=== PATIENT | female | born 1930 | race Caucasian/White ===

== ENCOUNTER → 2017-03-14 14:22 | Outpatient (CLI) | payer MEDICARE ==
[2017-03-14 19:26] LABS: INR 2.44 (0.85-1.17); PROTIME 25.8 SECONDS (11.6-15.0)
== END | disposition home or self-care (01) ==
LOC: D.LABREF 14:22
PROVIDERS: Family Medicine
DX: I63.9 Cerebral infarction, unspecified (principal)

== ENCOUNTER → 2017-04-11 12:21 | Outpatient (CLI) | payer MEDICARE | END | disposition home or self-care (01) | LOC: D.LABREF 12:21 | DX: Z95.2 Presence of prosthetic heart valve (principal); Z51.81 Encounter for therapeutic drug level monitoring; Z79.01 Long term (current) use of anticoagulants ==

== ENCOUNTER → 2017-05-09 12:49 | Outpatient (CLI) | payer MEDICARE ==
[2017-05-09 14:31] LABS: INR 2.76 (0.85-1.17); PROTIME 28.4 SECONDS (11.6-15.0)
== END | disposition home or self-care (01) ==
LOC: D.LABREF 12:49
PROVIDERS: Family Medicine
DX: I63.9 Cerebral infarction, unspecified (principal); Z51.81 Encounter for therapeutic drug level monitoring; Z79.01 Long term (current) use of anticoagulants